=== PATIENT | female | born 1985 | race Two or more races ===

== ENCOUNTER 2017-02-14 13:43 | Emergency (ER) | payer BC, OTHER ==
[~2017-02-14] VITALS: Ht 162.6 cm; Wt 97.1 kg
[~2017-02-14 13:43] MED LIST: HYDR-971 PO
[2017-02-14 13:55] VITALS: BP 145/101
--- NOTE | 2017-02-14 14:30 | PHYS DOC ---
Past Medical History Past Medical History: Other Additional Past Medical Histor: seasonal allergies Past Surgical History: No Surgical History Alcohol Use: None Drug Use: None Adult General Chief Complaint Chief Complaint: EYE PROBLEMS HPI HPI Patient is a 31 year old female presents emergency department stating that she' s had 3-4 day history of upper respiratory congestion with a sore throat. She states that she has been having watery eyes bilaterally with redness. She states in the mornings they're crusted over in which she is unable to get them open. She denies any visual difficulty. She denies wearing contact lenses. Patient denies any fever, chills or nausea vomiting. Review of Systems Review of Systems Constitutional: Denies fever or chills [] Eyes: Denies change in visual acuity, C/o redness, with bilateral eye itching HENT: nasal congestion and sore throat [] Respiratory: Denies cough or shortness of breath [] Cardiovascular: No additional information not addressed in HPI [] GI: Denies abdominal pain, nausea, vomiting, bloody stools or diarrhea [] : Denies dysuria or hematuria [] Musculoskeletal: Denies back pain or joint pain [] Integument: Denies rash or skin lesions [] Neurologic: Denies headache, focal weakness or sensory changes [] Allergies Allergies Allergies Coded Allergies Type Severity Reaction Last Updated Verified No Known Drug Allergies 07/30/16 No Physical Exam Physical Exam Constitutional: Well developed, well nourished, no acute distress, non-toxic appearance. [] HENT: Normocephalic, atraumatic, bilateral external ears normal, oropharynx moist, no oral exudates, nose normal. Bilateral tympanic membranes appear to be normal. Throat appears to have erythematous with crevices noted in the tonsils no exudate noted. No anterior cervical adenopathy noted Eyes: PERRLA, EOMI, conjunctiva red with no discharge noted Neck: Normal range of motion, no tenderness, supple, no stridor. [] Cardiovascular:Heart rate regular rhythm, no murmur [] Lungs & Thorax: Bilateral breath sounds clear to auscultation [] Skin: Warm, dry, no erythema, no rash. [] Back: No tenderness Extremities: No tenderness, no cyanosis, no clubbing, ROM intact, no edema. [] Neurologic: Alert and oriented X 3, normal motor function, normal sensory function, no focal deficits noted. [] Psychologic: Affect normal, judgement normal, mood normal. [] Current Patient Data Vital Signs Vital Signs Date Time Temp Pulse Resp B/P Pulse Ox O2 Delivery O2 Flow Rate FiO2 02/14/17 13:55 97.9 92 20 98 Room Air 97.9 EKG EKG [] Radiology/Procedures Radiology/Procedures [] Course & Med Decision Making Course & Med Decision Making Pertinent Labs and Imaging studies reviewed. (See chart for details) Rapid strep was negative. He'll be placed on Augmentin for sinus infection. He' ll also be provided with ofloxacin eyedrops. Take these medications as prescribed. Patient will be discharged home in stable condition with recommendations to monitor her blood pressure as it was elevated here in the emergency department. She'll be provided with a doctor's list to obtain a primary care physician. She will be discharged home in stable condition since symptoms to return back to emergency department been provided. Shunt agrees with discharge instructions treatment regimens and follow-up recommendations. [] Dragon Disclaimer Dragon Disclaimer This electronic medical record was generated, in whole or in part, using a voice recognition dictation system. Departure Departure Impression: Primary Impression: Sinusitis Additional Impression: Bilateral conjunctivitis Disposition: HOME, SELF-CARE Condition: STABLE Referrals: NO PCP (PCP) Patient Instructions: Allergic Conjunctivitis, [id number], Bacterial Conjunctivitis, [id number], Sinusitis, [id number] Additional Instructions: Activity as tolerated. Medications as prescribed. Good handwashing is essential. You may use warm moist packs in the morning to help with opening her eyes at. Continue with the Claritin. Follow-up the primary care physician in regards to your blood pressure. Monitor your blood pressure on a daily basis. Follow-up with primary care physician in the next 3-5 days. Return back to emergency prior signs symptoms of become worse. Scripts Ofloxacin (Ocuflox)5 Ml Drops1-2 Drop AU BID #[address] in bilateral eyes for the next 7 days Prov:ABBY PHILLIPS APRN 02/14/17 Amoxicillin/Potassium Clav (Augmentin 875-125 Tablet)1 Each Tablet1 Tab PO BID # 20 TAB Prov:ABBY PHILLIPS APRN 02/14/17 Problem Qualifiers ABBY PHILLIPS APRN Feb 14, 2017 14:30
[2017-02-14] MEDS ORDERED: AMOX1TAB61 PO (15:00)
[2017-02-14] MEDS ORDERED: OFLO5DRO AU (15:00)
[2017-02-15 09:41] LABS: NEGATIVE OBC STREP NEG; POSITIVE OBC STREP POS
== END 2017-02-14 15:22 | disposition home or self-care (01) ==
LOC: ER 13:43
DX: J32.9 Chronic sinusitis, unspecified (principal); H10.9 Unspecified conjunctivitis; J02.9 Acute pharyngitis, unspecified
CPT/HCPCS: 87070; 87880; 99283

== ENCOUNTER → 2017-11-20 | Outpatient (CLI) | payer OTHER | END | disposition home or self-care (01) | LOC: US 09:37 | DX: Z36.89 Encounter for other specified antenatal screening (principal); O26.842 Uterine size-date discrepancy, second trimester; Z3A.21 21 weeks gestation of pregnancy | CPT/HCPCS: 76805 ==

== ENCOUNTER 2018-03-18 18:06 | Observation (INO) | payer OTHER ==
[2018-03-18 19:29] LABS: BILIRUBIN,URINE NEGATIVE (NEG); CLARITY,URINE CLEAR; COLOR,URINE YELLOW; GLUCOSE,URINE NEGATIVE (NEG); NITRITE,URINE NEGATIVE (NEG); PROTEIN,URINE NEGATIVE (NEG-TRACE); UROBILINOGEN,URINE 0.2 mg/dL (0.2 mg/dL)
[2018-03-18] MEDS ORDERED: IV RINGERS,LACTATED 1000ML 1,000 ML IV (19:30)
[2018-03-18 19:48] LABS: BACTERIA,URINE FEW /HPF (0-FEW); RBC,URINE 0 /HPF (0-2)
[2018-03-18 19:49] LABS: SQUAMOUS EPITHELIAL CELL,UR FEW /LPF
[2018-03-18] MEDS: hydrOXYzine PAMOATE 25 MG CAPSULE PO (19:57)
== END 2018-03-18 21:00 | disposition home or self-care (01) ==
LOC: 3 SO LND 18:06
DX: O62.9 Abnormality of forces of labor, unspecified (principal); Z3A.38 38 weeks gestation of pregnancy
CPT/HCPCS: 81001; 87086; G0378; G0379; Q0177